=== PATIENT | male | born 1995 | race Caucasian/White ===

== ENCOUNTER 2017-01-12 21:47 | Emergency (ER) | payer BC, OTHER ==
[~2017-01-12] VITALS: Ht 172.7 cm; Wt 60.0 kg
[~2017-01-12 21:47] MED LIST: ALBU17I INH; CYCL-36 PO; IBUP-238 PO; META30CA PO
[2017-01-12 21:48] VITALS: BP 140/92; PULSE 68; RESP 16; TEMP 98; O2SAT 99
[2017-01-13] MEDS ORDERED: MORPHINE SULFATE 4 MG/ML INJ IV PUSH ONE (01:00)
--- NOTE | 2017-01-13 01:17 | PD ---
HPI Chief Complaint: Respiratory Symptoms Time Seen by Provider: 00:48 Travel History International Travel<30 days: No Contact w/Intl Traveler<30days: No Traveled to known affect area: No History of Present Illness HPI 21yo M with recently diagnosed mononucleosis presents to the ED with c/o left upper abdominal pain for 2 days that occasionally radiates up to left scapula. Has not had any fever today. Pt also with sob at time. Pain is worst with movement. Denies any chest pain, vomiting, urinary complaints. PFSH Past Medical History ADHD: Yes Asthma: Yes Cancer: Yes Diabetes: No Glaucoma: No Hepatitis: No Hiatal Hernia: No Hypertension: No Respiratory: No Immunizations Current: Yes Thyroid Disease: No Past Surgical History Abdominal Surgery: Yes (LICHA INGUINAL HERNIA REPAIR AGE 2) Pacemaker: No Other Surgery: Yes (CYST ON bilat WRIST) Social History Alcohol Use: No Tobacco Use: No Substance Use: No Allergies-Medications (Allergen,Severity, Reaction): Coded Allergies: Cephalosporins (Verified Allergy, Severe, Hives, 01/12/17) Penicillin (Verified Allergy, Severe, Rash, 01/12/17) Prevacid (Verified Allergy, Severe, Rash, 01/12/17) Sulfa (Verified Allergy, Severe, Hives, 01/12/17) Reported Meds & Prescriptions Reported Meds & Active Scripts Active Motrin (Ibuprofen) 800 Mg Tab 400 Mg PO TID Flexeril (Cyclobenzaprine HCl) 10 Mg Tab 10 Mg PO TID Reported Proventil Mdi (Albuterol Sulfate) 17 Gm Aero 2 Puff INH Q4 Metadate CD (Methylphenidate HCl) 30 Mg Cap 40 Mg PO DAILY Review of Systems Except as stated in HPI: all other systems reviewed are Neg Physical Exam Narrative GENERAL: 21yo M in mild distress. SKIN: Focused skin assessment warm/dry. HEAD: Atraumatic. Normocephalic. EYES: Pupils equal and round. No scleral icterus. No injection or drainage. ENT: No nasal bleeding or discharge. Mucous membranes pink and moist. NECK: Trachea midline. No JVD. CARDIOVASCULAR: Regular rate and rhythm. No murmur appreciated. RESPIRATORY: No accessory muscle use. Clear to auscultation. Breath sounds equal bilaterally. GASTROINTESTINAL: Abdomen soft, +TTP LUQ. No rebound tenderness or guarding. MUSCULOSKELETAL: +TTP medial left scapula. No obvious deformities. No clubbing. No cyanosis. No edema. NEUROLOGICAL: Awake and alert. No obvious cranial nerve deficits. Motor grossly within normal limits. Normal speech. PSYCHIATRIC: Appropriate mood and affect; insight and judgment normal. Data Data Last Documented VS Vital Signs Date Time Temp Pulse Resp B/P Pulse Ox O2 Delivery O2 Flow Rate FiO2 01/12/17 21:48 98.0 68 16 140/92 99 Orders Complete Blood Count With Diff (01/13/17 00:55) Comprehensive Metabolic Panel (01/13/17 00:55) Ribs, Uni (W/Exp Cxr-Min 3vw) (01/13/17 ) Ct Abd/Pel W Iv Contrast(Rout) (01/13/17 ) Morphine Inj (Morphine Inj) (01/13/17 01:00) Iohexol 350 Inj (Omnipaque 350 Inj) (01/13/17 01:23) Labs Laboratory Tests Test 01/13/17 01:15 White Blood Count 7.3 TH/MM3 Red Blood Count 5.51 MIL/MM3 Hemoglobin 14.0 GM/DL Hematocrit 41.8 % Mean Corpuscular Volume 75.7 FL Mean Corpuscular Hemoglobin 25.4 PG Mean Corpuscular Hemoglobin 33.6 % Concent Red Cell Distribution Width 13.2 % Platelet Count 212 TH/MM3 Mean Platelet Volume 9.1 FL Neutrophils (%) (Auto) 46.9 % Lymphocytes (%) (Auto) 41.1 % Monocytes (%) (Auto) 7.8 % Eosinophils (%) (Auto) 3.9 % Basophils (%) (Auto) 0.3 % Neutrophils # (Auto) 3.4 TH/MM3 Lymphocytes # (Auto) 3.0 TH/MM3 Monocytes # (Auto) 0.6 TH/MM3 Eosinophils # (Auto) 0.3 TH/MM3 Basophils # (Auto) 0.0 TH/MM3 CBC Comment DIFF FINAL Differential Comment Sodium Level 140 MEQ/L Potassium Level 4.0 MEQ/L Chloride Level 105 MEQ/L Carbon Dioxide Level 29.0 MEQ/L Anion Gap 6 MEQ/L Blood Urea Nitrogen 15 MG/DL Creatinine 0.95 MG/DL Estimat Glomerular Filtration 99 ML/MIN Rate Random Glucose 89 MG/DL Calcium Level 9.0 MG/DL Total Bilirubin 0.3 MG/DL Aspartate Amino Transf 15 U/L (AST/SGOT) Alanine Aminotransferase 21 U/L (ALT/SGPT) Alkaline Phosphatase 66 U/L Total Protein 7.3 GM/DL Albumin 3.8 GM/DL MDM Medical Decision Making Medical Screen Exam Complete: Yes Emergency Medical Condition: Yes Differential Diagnosis splenic rupture vs. rib fracture vs. viral syndrome Narrative Course 21yo M with left upper abdominal pain and recent diagnosis of mononucleosis. Labs reviewed, no leukocytosis. H/H normal. CMP unremarkable. CTa/p negative. Normal size and attenuation of spleen. Xray left ribs negative. CXR negative. Pt given morphine 4mg IV with improvement of pain. Return precautions given. Diagnosis Primary Impression: Abdominal pain Qualified Code: R10.12 - Left upper quadrant pain Patient Instructions: General Instructions Departure Forms: Tests/Procedures Additional Instructions: Please follow up with your PMD in 3-7 days. Return to the ED if symptoms worsen. Med/Other Pt SpecificInfo: Prescription(s) given Scripts Acetaminophen (Acetaminophen Extra Strength)500 Mg Shf119 Mg PO Q6H PRN (PAIN SCALE 1 TO 4) #20 TAB Ref 0 Prov:Delmi Tsai DO 01/13/17 Disposition: 01 DISCHARGE HOME Condition: Stable Delmi Tsai DO Jan 13, 2017 01:17
[2017-01-13] MEDS ORDERED: IOHEXOL 350 MG/ML 10 ML VIAL (for RAD DIAG) IV ONE (01:23)
--- NOTE | 2017-01-13 01:40 | RADRPT ---
EXAM DATE/TIME: 01/13/2017 01:06 [facility] COMPARISON: No previous studies available for comparison. INDICATIONS : Left upper rib pain. No known injury. MEDICAL HISTORY : None. SURGICAL HISTORY : None. ENCOUNTER: Initial ACUITY: 2 days PAIN SCORE: 6/10 LOCATION: Left upper chest FINDINGS: Multiple views of the left ribs were performed. There is no evidence of displaced fracture. No dest ructive lesions or areas of periosteal thickening are seen. Expiratory view of the chest is negative for pneumothorax. The mediastinal structures are midline. CONCLUSION: No perceptible rib fracture. No pneumothorax or other acute cardiopulmonary disease demonstrated. Iain Aguirre MD on January 13, 2017 at 1:38 Board Certified Radiologist. This report was verified electronically.
--- NOTE | 2017-01-13 01:45 | RADRPT ---
EXAM DATE/TIME: 01/13/2017 01:20 [facility] COMPARISON: CT ABDOMEN & PELVIS W CONTRAST, September 02, 2015, 19:24. INDICATIONS : Recent mono diagnosis. Left upper quadrant pain today. IV CONTRAST: 95 cc Omnipaque 350 (iohexol) IV ORAL CONTRAST: No oral contrast ingested. RADIATION DOSE: 4.73 CTDIvol (mGy) MEDICAL HISTORY : Hernia, inguinal. SURGICAL HISTORY : Hernia repair. ENCOUNTER: Initial ACUITY: 1 day PAIN SCALE: 5/10 LOCATION: Left upper quadrant TECHNIQUE: Volumetric scanning of the abdomen and pelvis was performed. Using automated exposure control and ad justment of the mA and/or kV according to patient size, radiation dose was kept as low as reasonably achievable to obtain optimal diagnostic quality images. FINDINGS: LOWER LUNGS: The visualized lower lungs are clear. LIVER: Homogeneous density without lesion. There is no dilation of the biliary tree. No calcified gallston es. SPLEEN: Normal size and attenuation/enhancement. The spleen measures 5.4 x 10.0 x 9.6 cm, essentially identic al to the comparison. PANCREAS: Within normal limits. KIDNEYS: Normal in size and shape. There is no mass, stone or hydronephrosis. ADRENAL GLANDS: Within normal limits. VASCULAR: There is no aortic aneurysm. BOWEL/MESENTERY: The stomach, small bowel, and colon demonstrate no acute abnormality. There is no free intraperitone al air or fluid. ABDOMINAL WALL: Within normal limits. RETROPERITONEUM: There is no lymphadenopathy. BLADDER: No wall thickening or mass. REPRODUCTIVE: Within normal limits. INGUINAL: There is no lymphadenopathy or hernia. MUSCULOSKELETAL: Visualized osseous structures are intact. CONCLUSION: Normal CT of the abdomen and pelvis. Iain Aguirre MD on January 13, 2017 at 1:41 Board Certified Radiologist. This report was verified electronically.
[2017-01-13 01:51] LABS: AUTOMATED NEUTROPHIL # 3.4 TH/MM3 (1.8-7.7); BASOPHIL % 0.3 % (0.0-2.0); EOSINOPHIL # 0.3 TH/MM3 (0-0.4); EOSINOPHIL % 3.9 % (0.0-4.0); HEMATOCRIT 41.8 % (39.0-51.0); HEMO FLAGS DIFF FINAL; LYMPH % 41.1 % (9.0-44.0); MEAN CELL VOLUME 75.7 FL (80.0-100.0); MEAN CORPUSCULAR HEMOGLOBIN 25.4 PG (27.0-34.0); MEAN CORPUSCULAR HGB CONC 33.6 % (32.0-36.0); MONO % 7.8 % (0.0-8.0); NEUT % 46.9 % (16.0-70.0); PLATELET COUNT 212 TH/MM3 (150-450); RED BLOOD COUNT 5.51 MIL/MM3 (4.50-5.90); RED CELL DISTRIBUTION WIDTH 13.2 % (11.6-17.2); WHITE BLOOD COUNT 7.3 TH/MM3 (4.0-11.0)
[2017-01-13 02:12] LABS: ALT (GPT) 21 U/L (12-78); ANION GAP 6 MEQ/L (5-15); AST (GOT) 15 U/L (15-37); BLOOD UREA NITROGEN 15 MG/DL (7-18); CHLORIDE 105 MEQ/L (98-107); GLOMERULAR FILTRATION RATE 99 ML/MIN (>89); SODIUM (NA) 140 MEQ/L (136-145)
[2017-01-13 02:15] LABS: ALKALINE PHOSPHATASE 66 U/L (45-117); TOTAL BILIRUBIN ADULT 0.3 MG/DL (0.2-1.0)
[2017-01-13] MEDS ORDERED: ACET500T36 PO (03:00)
[2017-01-13 03:04] VITALS: BP 106/63; PULSE 59; RESP 16; TEMP 97.5; O2SAT 97
== END 2017-01-13 03:23 | disposition home or self-care (01) ==
LOC: NEPE 21:47
DX: R10.12 Left upper quadrant pain (principal); J45.909 Unspecified asthma, uncomplicated
CPT/HCPCS: 71101; 74177; 80053; 85025; 96374; 99284; J2270; Q9967

== ENCOUNTER 2017-01-15 06:34 | Emergency (ER) | payer BC ==
[~2017-01-15] VITALS: Ht 172.7 cm; Wt 65.0 kg
[~2017-01-15 06:34] MED LIST changes: +ACET500T36 PO
[2017-01-15 06:36] VITALS: BP 128/78; PULSE 75; RESP 16; TEMP 97.6; O2SAT 98
[2017-01-15] MEDS ORDERED: META40CA PO (07:04)
[2017-01-15] MEDS ORDERED: NAPR500 PO (07:39)
--- NOTE | 2017-01-15 07:39 | PD ---
HPI Chief Complaint: Abdominal Pain Time Seen by Provider: 07:16 Travel History International Travel<30 days: No Contact w/Intl Traveler<30days: No Traveled to known affect area: No History of Present Illness HPI This 21-year-old man who presents to the emergency department complaining of ongoing left flank pain. He's had URI symptoms with fever and chills for the past 2 weeks or so. He's been in the emergency department and urgent care several times. He had a positive mono test. He was seen in the emergency department January 12 with abdominal pain. It is CT scan that was normal, as well as laboratory studies that were normal. He had rib x-rays are normal. He was told he may have an enlarged spleen. On his CT scan however his spleen was the same size as on previous imaging several months ago. He states he was having worsening left flank pain and so he came back to the emergency department today. History Past Medical History Narrative Medical Asthma Tetanus Vaccination: < 5 Years Influenza Vaccination: No Social History Alcohol Use: No Tobacco Use: No Allergies-Medications (Allergen,Severity, Reaction): Coded Allergies: Cephalosporins (Verified Allergy, Severe, Hives, 01/15/17) Penicillin (Verified Allergy, Severe, Rash, 01/15/17) Prevacid (Verified Allergy, Severe, Rash, 01/15/17) Sulfa (Verified Allergy, Severe, Hives, 01/15/17) Reported Meds & Prescriptions Reported Meds & Active Scripts Active Reported Metadate CD 24 HR (Methylphenidate HCl) 40 Mg Capcr 40 Mg PO DAILY Review of Systems Except as stated in HPI: all other systems reviewed are Neg Physical Exam Narrative GENERAL: A 21-year-old man, no acute distress. SKIN: Focused skin assessment warm/dry. HEAD: Atraumatic. Normocephalic. CARDIOVASCULAR: Regular rate and rhythm. No murmur appreciated. RESPIRATORY: No accessory muscle use. Clear to auscultation. Breath sounds equal bilaterally. GASTROINTESTINAL: Abdomen is flat and soft. Minimal left-sided tenderness. Spleen is not palpable. MUSCULOSKELETAL: No obvious deformities. No edema. NEUROLOGICAL: Awake and alert. No obvious cranial nerve deficits. Motor grossly within normal limits. Normal speech. PSYCHIATRIC: Appropriate mood and affect; insight and judgment normal. Data Data Last Documented VS Vital Signs Date Time Temp Pulse Resp B/P Pulse Ox O2 Delivery O2 Flow Rate FiO2 5/2/17 06:47 16 01/15/17 06:36 97.6 75 128/78 98 MDM Medical Decision Making Medical Screen Exam Complete: Yes Emergency Medical Condition: Yes Differential Diagnosis Flank pain, mono, strain or sprain, PE, other Narrative Course Medical decision making This is a 21-year-old man who presents to the emergency Department left-sided abdominal pain. He looks well. He was diagnosed with mono recently. He had recent workup including labs and CT that were negative. Possibly he has some subclinical splenomegaly causing the pain. Psych clear. There is no evidence of DVT. No recent travel, leg swelling, shortness of breath. In any case, I don't think there is any further diagnostic evaluation and needs to be done in the emergency Department. I recommend he continue with NSAIDs. We'll give him a note for work which he is concerned about. Outpatient follow-up. Diagnosis Primary Impression: Abdominal pain Additional Instructions: Follow-up with her primary doctor in 2-4 days for further evaluation. Take Naprosyn as needed for pain. Return to the emergency department for any new or worsening symptoms. Med/Other Pt SpecificInfo: Prescription(s) given Scripts Naproxen (Naprosyn)500 Mg Yyr960 Mg PO BID PRN (PAIN SCALE 1 TO 10) #20 TAB Prov:Rinku Caldwell MD 01/15/17 Disposition: 01 DISCHARGE HOME Condition: Stable Rinku Caldwell MD January 15, 2017 07:39
[2017-01-15] MEDS ORDERED: KETOROLAC TROMETHAMINE 30 MG/ML (IVP) VIAL IV PUSH ONE (07:45)
== END 2017-01-15 08:26 | disposition home or self-care (01) ==
LOC: NEPE 06:34
DX: R10.9 Unspecified abdominal pain (principal); R50.9 Fever, unspecified; Z87.09 Personal history of other diseases of the respiratory system
CPT/HCPCS: 96374; 99283; J1885

== ENCOUNTER 2017-05-12 13:26 | Emergency (ER) | payer BC, OTHER ==
[~2017-05-12] VITALS: Ht 170.2 cm; Wt 70.0 kg
[~2017-05-12 13:26] MED LIST changes: -ACET500T36 PO; -ALBU17I INH; -CYCL-36 PO; -IBUP-238 PO; -META30CA PO; +META40CA PO; +NAPR500 PO
[2017-05-12 13:28] VITALS: BP 119/63; PULSE 99; RESP 20; TEMP 98.3; O2SAT 97
--- NOTE | 2017-05-12 14:00 | PD ---
HPI Chief Complaint: Cold / Flu Symptoms Time Seen by Provider: 13:59 Travel History International Travel<30 days: No Contact w/Intl Traveler<30days: No Traveled to known affect area: No History of Present Illness HPI 21-year-old male presents to the emergency Department with complaint of fevers, body aches, sore throat, nasal congestion, ear pain 1 week. Fever started 2-3 days ago. MAXIMUM TEMPERATURE of 101.6 last night. Denies limp and throat, difficulty swallowing, unusual drooling. Reports painful swallowing. Reports occasional cough. Has history of asthma. Denies chest pain, chest tightness, shortness of breath, wheezing. Has an inhaler and has not needed to use it. Does not need a refill on inhaler. Denies abdominal pain, nausea, vomiting. Denies change in stool or urine. Has been taking urcu-ddd-eyfpxwx medications for symptom management. Symptoms are moderate in severity. Has no other medical complaints. Multiple allergies verified on chart. No other modifying factors or associated signs and symptoms. PFSH Past Medical History ADHD: Yes Asthma: Yes Cancer: Yes Diabetes: No Diminished Hearing: No Glaucoma: No Hepatitis: No Hiatal Hernia: No Hypertension: No Respiratory: Yes (ASTHMA) Immunizations Current: Yes Thyroid Disease: No Past Surgical History Abdominal Surgery: Yes (LICHA INGUINAL HERNIA REPAIR AGE 2) Pacemaker: No Other Surgery: Yes (CYST ON bilat WRIST) Social History Alcohol Use: No Tobacco Use: No Substance Use: No Allergies-Medications (Allergen,Severity, Reaction): Coded Allergies: Sulfa (Sulfonamide Antibiotics) (Unverified Allergy, Severe, Hives, ) cefepime (Unverified Allergy, Severe, Hives, 05/12/17) ceftaroline fosamil (Unverified Allergy, Severe, Hives, 05/12/17) lansoprazole (Unverified Allergy, Severe, Rash, 05/12/17) penicillin G (Unverified Allergy, Severe, Rash, 05/12/17) Reported Meds & Prescriptions Reported Meds & Active Scripts Active Magic Mouthwash Pediatric/Adult Liq (Lidocaine/Diphenhydr/Alum/Mg/Simeth) 60 Ml Susp 5 Ml SWISH-SWAL Q3HR PRN Each 5mL contains: Diphenydramine 4.5mg, Viscous Lidocaine 2% 10mg, Maalox Advanced Regular Strength 2.7ml Ibuprofen 800 Mg Tab 800 Mg PO Q6HR PRN Azithromycin 500 Mg Tab 500 Mg PO DAILY Naprosyn (Naproxen) 500 Mg Tab 500 Mg PO BID PRN Reported Metadate CD 24 HR (Methylphenidate HCl) 40 Mg Capcr 40 Mg PO DAILY Review of Systems Except as stated in HPI: all other systems reviewed are Neg Physical Exam Narrative GENERAL: Well-nourished, well-developed male patient, in no acute distress; afebrile, nontoxic-appearing SKIN: Warm and dry. No rash. HEAD: Atraumatic. Normocephalic. EYES: Pupils equal and round at 3 mm with brisk reaction. No scleral icterus. No injection or drainage. PERRLA. ENT: Mucosa pink and dry. Pharynx with 1+ tonsils; with erythema; without exudate, and edema. No Uvular edema. No uvular, palatal, or tonsillar deviation. Airway patent. Voice is hoarse. EARS: Bilateral pinnae and external canals appear within normal limits. Left tympanic membrane with erythema, dullness, and loss of landmarks; no perforation. Right tympanic membranes without erythema, dullness or perforation.. NECK: Trachea midline. Anterior cervical lymphadenopathy and tenderness. CARDIOVASCULAR: Regular rate and rhythm. No murmur appreciated. RESPIRATORY: No accessory muscle use. Clear to auscultation. Breath sounds equal bilaterally. GASTROINTESTINAL: Abdomen soft, non-tender, nondistended. Hepatic and splenic margins not palpable. Bowel sounds are active 4 quadrants. MUSCULOSKELETAL: No obvious deformities. No clubbing. No cyanosis. No edema. NEUROLOGICAL: Awake and alert. Oriented 3. No obvious cranial nerve deficits. Motor grossly within normal limits. Normal speech. Moves all extremities. PSYCHIATRIC: Appropriate mood and affect; insight and judgment normal. Data Data Last Documented VS Vital Signs Date Time Temp Pulse Resp B/P (MAP) Pulse Ox O2 Delivery O2 Flow Rate FiO2 05/12/17 13:28 98.3 99 20 119/63 (81) 97 Room Air Orders Orders Influenzae A/B Antigen (05/12/17 14:00) Group A Rapid Strep Screen (05/12/17 14:00) MDM Medical Decision Making Medical Screen Exam Complete: Yes Emergency Medical Condition: Yes Medical Record Reviewed: Yes Differential Diagnosis Strep pharyngitis, influenza, URI, otitis media Narrative Course 21-year-old male physical exam consistent with left otitis media and cold/flu symptoms. MAXIMUM TEMPERATURE of 101.6 last night. Patient is afebrile in the ER. He is nontoxic-appearing. Denies lump in throat, difficulty swallowing, unusual drooling. I will treat the patient with azithromycin for otitis media. Influenza ordered. Rapid strep ordered and pending. 1505: Influenza negative. Azithromycin, Magic mouthwash, ibuprofen prescribed for home. Rapid strep negative. Instructed patient to follow up with primary care provider. Patient verbalizes understanding and agreement with treatment plan. Patient is medically cleared and stable for discharge. Discussed reasons to return to the emergency department. Patient agrees with treatment plan. The patients vital signs are stable and the patient is stable for outpatient follow-up and treatment. Patient discharged home, stable and in no acute distress. Diagnosis Primary Impression: Left otitis media Qualified Codes: H66.92 - Otitis media, unspecified, left ear Referrals: [facility] Primary Care Physician Patient Instructions: General Instructions, Serous Otitis Media (ED) Additional Instructions: Antibiotics as prescribed and take until they are gone Ibuprofen or Tylenol as directed and as needed to reduce fever; may alternate ibuprofen and Tylenol as needed every 3 hours to minimize fever Egvl-hjb-tycnelm cold/flu medications as directed and as needed for symptom management Get plenty of sleep/rest Drink plenty of fluids to prevent dehydration; such as Gatorade, Powerade, Pedialyte Crisp diet to encourage nutrition such as crackers, fruit, applesauce, toast, soup etc. Use an air humidifier/turn off ceiling fans Follow-up with your primary care provider within 1 day Return immediately to the emergency department with worsening of symptoms Med/Other Pt SpecificInfo: Prescription(s) given Scripts Lvzhakdevbbjbxk-Jneylnldo-Mjo-Alum-Simeth Liq (Magic Mouthwash Pediatric/Adult Liq) 60 Ml Susp 5 ML SWISH-SWAL Q3HR Y for SORE THROAT, #60 ML 0 Refills Each 5mL contains: Diphenydramine 4.5mg, Viscous Lidocaine 2% 10mg, Maalox Advanced Regular Strength 2.7ml Prov: Constanza Guo 05/12/17 Ibuprofen (Ibuprofen) 800 Mg Tab 800 MG PO Q6HR Y for PAIN, #30 TAB 0 Refills Prov: Constanza Guo 05/12/17 Azithromycin (Azithromycin) 500 Mg Tab 500 MG PO DAILY for Infection, #5 TAB 0 Refills Prov: Constanza Guo 05/12/17 Disposition: 01 DISCHARGE HOME Condition: Stable Constanza Guo May 12, 2017 14:00
[2017-05-12] MEDS ORDERED: AZIT500T2 PO (14:14)
[2017-05-12] MEDS ORDERED: MAGICPED SWISH-SWAL (14:15)
[2017-05-12] MEDS ORDERED: IBUP800T23 PO (14:15)
== END 2017-05-12 15:38 | disposition home or self-care (01) ==
LOC: NEPK 13:26
DX: H66.92 Otitis media, unspecified, left ear (principal); J02.9 Acute pharyngitis, unspecified; R09.81 Nasal congestion; R50.9 Fever, unspecified; J45.909 Unspecified asthma, uncomplicated; F90.9 Attention-deficit hyperactivity disorder, unspecified type
CPT/HCPCS: 87081; 87804; 87880; 99284

== ENCOUNTER 2017-08-12 20:24 | Emergency (ER) | payer OTHER ==
[~2017-08-12 20:24] MED LIST changes: +AZIT500T2 PO; +IBUP1TAB7 PO; +MAGICPED SWISH-SWAL
[2017-08-12 20:25] VITALS: BP 132/78; PULSE 77; RESP 16; TEMP 98; O2SAT 99
--- NOTE | 2017-08-12 22:06 | PD ---
HPI Chief Complaint: Injury Time Seen by Provider: 21:47 Travel History International Travel<30 days: No Contact w/Intl Traveler<30days: No Traveled to known affect area: No History of Present Illness HPI 22-year-old male here for evaluation of right anterior shoulder pain after running, sliding, and striking his shoulder against the wall. Patient fell to the ground when this occurred. He did not hit his head or lose consciousness. Pain is severe, constant, worse with movements. He states that his right arm feels "a little weird." He is right-hand dominant. PFSH Past Medical History ADHD: Yes Asthma: Yes Cancer: Yes (thyroid) Cardiovascular Problems: No Diabetes: No Diminished Hearing: No Glaucoma: No Hepatitis: No Hiatal Hernia: No Hypertension: No Respiratory: Yes (ASTHMA) Immunizations Current: Yes Thyroid Disease: No Past Surgical History Abdominal Surgery: Yes (LICHA INGUINAL HERNIA REPAIR AGE 2) Pacemaker: No Other Surgery: Yes (CYST ON bilat WRIST, moved coins from throat as a child) Social History Alcohol Use: No Tobacco Use: No Substance Use: No Allergies-Medications (Allergen,Severity, Reaction): Coded Allergies: Sulfa (Sulfonamide Antibiotics) (Unverified Allergy, Severe, Hives, ) cefepime (Unverified Allergy, Severe, Hives, 08/12/17) ceftaroline fosamil (Unverified Allergy, Severe, Hives, 08/12/17) lansoprazole (Unverified Allergy, Severe, Rash, 08/12/17) penicillin G (Unverified Allergy, Severe, Rash, 08/12/17) Reported Meds & Prescriptions Reported Meds & Active Scripts Active Ibuprofen 800 Mg Tab 800 Mg PO Q6HR PRN Naprosyn (Naproxen) 500 Mg Tab 500 Mg PO BID PRN Review of Systems Except as stated in HPI: all other systems reviewed are Neg Physical Exam Narrative GENERAL: Well-developed, well-nourished, comfortable, no apparent distress. SKIN: Focused skin assessment warm/dry. No lacerations, abrasions, or ecchymosis. HEAD: Atraumatic. Normocephalic. EYES: Pupils equal and round. No scleral icterus. No injection or drainage. NECK: Trachea midline. No JVD. No midline cervical spine step-off or tenderness. CARDIOVASCULAR: Regular rate and rhythm. Distal radial pulses brisk and equal bilaterally RESPIRATORY: No accessory muscle use. Clear to auscultation. Breath sounds equal bilaterally. GASTROINTESTINAL: Abdomen soft, non-tender, nondistended. Hepatic and splenic margins not palpable. MUSCULOSKELETAL: No obvious deformities. No clubbing. No cyanosis. No edema. Moderate tenderness along the anterior shoulder. There is normal range of active and passive motion in the right shoulder. No tenderness or step-off along the right clavicle. The rest of his joints and extremities are without deformity, without tenderness, with normal range of motion. NEUROLOGICAL: Awake and alert. No obvious cranial nerve deficits. Motor grossly within normal limits. Normal speech. Normal sensation in the right upper extremity. PSYCHIATRIC: Appropriate mood and affect; insight and judgment normal. Data Data Last Documented VS Vital Signs Date Time Temp Pulse Resp B/P (MAP) Pulse Ox O2 Delivery O2 Flow Rate FiO2 08/12/17 21:35 Room Air 08/12/17 20:25 98.0 77 16 132/78 (96) 99 Orders Orders Shoulder, Complete (>2vws) (08/12/17 ) Ketorolac Inj (Toradol Inj) (08/12/17 22:15) [facility] Medical Decision Making Medical Screen Exam Complete: Yes Emergency Medical Condition: Yes Differential Diagnosis Right shoulder contusion versus fracture versus dislocation Narrative Course Right shoulder x-ray shows no acute osseous injury. Diagnosis Primary Impression: Contusion of right shoulder Qualified Codes: S40.011A - Contusion of right shoulder, initial encounter Referrals: Primary Care Physician 3 days Additional Instructions: Follow-up with a primary care physician this week. Take Tylenol and ibuprofen for pain. Return to the emergency department for worsening symptoms or any other concerns. Disposition: 01 DISCHARGE HOME Condition: Stable Ebenezer Gordon MD Aug 12, 2017 22:06
--- NOTE | 2017-08-12 22:07 | RADRPT ---
EXAM DATE/TIME: 08/12/2017 20:46 [facility] COMPARISON: SHOULDER RIGHT COMPLETE (>2VWS), September 02, 2015, 17:49. INDICATIONS : Hit against door today. MEDICAL HISTORY : None. SURGICAL HISTORY : None. ENCOUNTER: Initial ACUITY: 1 day PAIN SCORE: 9/10 LOCATION: Right Top of shoulder FINDINGS: Multiple view examination of the right shoulder demonstrates no evidence of fracture or dislocation. The glenohumeral and acromioclavicular joints are maintained. There is normal range of motion betwe en internal and external rotation. Bony mineralization is normal. CONCLUSION: No acute osseous injury.. Ej Cloud MD on August 12, 2017 at 22:05 Board Certified Radiologist. This report was verified electronically.
[2017-08-12] MEDS ORDERED: KETOROLAC TROMETHAMINE 60 MG/2 ML (IM) VIAL IM ONE (22:15)
== END 2017-08-12 22:40 | disposition home or self-care (01) ==
LOC: NEPD 20:24
DX: S40.011A Contusion of right shoulder, initial encounter (principal); F90.9 Attention-deficit hyperactivity disorder, unspecified type; J45.909 Unspecified asthma, uncomplicated; W22.01XA Walked into wall, initial encounter; W18.00XA Striking against unspecified object with subsequent fall, initial encounter; Z88.0 Allergy status to penicillin; Z88.8 Allergy status to other drugs, medicaments and biological substances
CPT/HCPCS: 73030; 96372; 99284; J1885

== ENCOUNTER 2017-09-18 01:39 | Emergency (ER) | payer SELFPAY ==
[~2017-09-18] VITALS: Ht 172.7 cm; Wt 70.0 kg
[~2017-09-18 01:39] MED LIST changes: -AZIT500T2 PO; -MAGICPED SWISH-SWAL; -META40CA PO
[2017-09-18 01:42] VITALS: BP 136/84; PULSE 99; RESP 20; TEMP 97.9; O2SAT 98
[2017-09-18 01:58] VITALS: BP 129/75; PULSE 85; RESP 16; O2SAT 100
[2017-09-18] MEDS ORDERED: PROCHLORPERAZINE INJ 10 MG/2 ML VIAL IV PUSH ONE (02:00)
[2017-09-18] MEDS ORDERED: MORPHINE SULFATE 4 MG/ML INJ IV PUSH ONE (02:00)
[2017-09-18 02:22] VITALS: RESP 16; O2SAT 100
[2017-09-18] MEDS ORDERED: MORPHINE SULFATE 2 MG/ML INJ IV ONE (02:30)
--- NOTE | 2017-09-18 02:30 | PD ---
HPI Chief Complaint: Chest Pain Time Seen by Provider: 01:55 Travel History International Travel<30 days: No Contact w/Intl Traveler<30days: No Traveled to known affect area: No History of Present Illness HPI This is a 22-year-old male with a history of asthma, presents here with complaints of substernal chest pain. The patient reports sharp stabbing substernal chest pain. He reports that he was at home and received bad news about a passing of a loved one when he started experiencing severe substernal chest pain. He reports that sharp and unrelenting. He also reports epigastric discomfort. There is no reported nausea vomiting diarrhea. There is no reported shortness of breath. The patient has no cardiac history. He does have a history of thyroid cancer that's been in remission. He also has a history of asthma. There is no nausea or diaphoresis. There is no radiation of the pain. PFSH Past Medical History ADHD: Yes Asthma: Yes Cancer: Yes (thyroid) Cardiovascular Problems: No Diabetes: No Diminished Hearing: No Glaucoma: No Hepatitis: No Hiatal Hernia: No Hypertension: No Respiratory: Yes (ASTHMA) Immunizations Current: Yes Thyroid Disease: No Past Surgical History Abdominal Surgery: Yes (LICHA INGUINAL HERNIA REPAIR AGE 2) Pacemaker: No Other Surgery: Yes (CYST ON bilat WRIST, moved coins from throat as a child) Social History Alcohol Use: Yes (OCCASIONALLY) Tobacco Use: No Substance Use: No Allergies-Medications (Allergen,Severity, Reaction): Coded Allergies: Sulfa (Sulfonamide Antibiotics) (Unverified Allergy, Severe, Hives, 09/18/17 ) cefepime (Unverified Allergy, Severe, Hives, 09/18/17) ceftaroline fosamil (Unverified Allergy, Severe, Hives, 09/18/17) lansoprazole (Unverified Allergy, Severe, Rash, 09/18/17) penicillin G (Unverified Allergy, Severe, Rash, 09/18/17) Reported Meds & Prescriptions Reported Meds & Active Scripts Active Review of Systems Except as stated in HPI: all other systems reviewed are Neg General / Constitutional: No: Fever, Chills HENT: No: Headaches, Lightheadedness Cardiovascular: Positive: Chest Pain or Discomfort, No: Palpitations, Irregular Rhythm Respiratory: No: Cough, Shortness of Breath Gastrointestinal: Positive: Diarrhea, Abdominal Pain (epigastric), No: Nausea, Vomiting Genitourinary: No: Frequency, Dysuria Musculoskeletal: No: Weakness, Pain Neurologic: No: Weakness, Dizziness, Headache, Change in Mentation Psychiatric: No: Substance Abuse Physical Exam Narrative GENERAL: Developed well-nourished male in no acute respiratory distress. SKIN: Focused skin assessment warm/dry. HEAD: Atraumatic. Normocephalic. EYES: Pupils equal and round. No scleral icterus. No injection or drainage. ENT: No nasal bleeding or discharge. Mucous membranes pink and moist. NECK: Trachea midline. Supple CARDIOVASCULAR: Sinus rhythm with a rate of 95. No ectopy. No murmur appreciated. Patient has reproducible pain on his anterior chest wall. RESPIRATORY: No accessory muscle use. Clear to auscultation. Breath sounds equal bilaterally. GASTROINTESTINAL: Abdomen soft, non-tender, nondistended. MUSCULOSKELETAL: No obvious deformities. No clubbing. No cyanosis. No edema. NEUROLOGICAL: Awake and alert. No obvious cranial nerve deficits. Motor grossly within normal limits. Normal speech. NEUROLOGICAL: Awake and alert. Cranial nerves II through XII intact. Motor and sensory grossly within normal limits. Data Data Last Documented VS Vital Signs Date Time Temp Pulse Resp B/P (MAP) Pulse Ox O2 Delivery O2 Flow Rate FiO2 09/18/17 02:22 16 100 Room Air 09/18/17 01:58 85 09/18/17 01:42 97.9 Orders Orders Complete Blood Count With Diff (09/18/17 01:58) Comprehensive Metabolic Panel (09/18/17 01:58) Ckmb (Isoenzyme) Profile (09/18/17 01:58) Troponin I (09/18/17 01:58) Thyroid Stimulating Hormone (09/18/17 01:58) Chest, Single Ap (09/18/17 01:58) Iv Access Insert/Monitor (09/18/17 01:58) Ecg Monitoring (09/18/17 01:58) Oximetry (09/18/17 01:58) Drug Screen, Random Urine (09/18/17 01:58) Prochlorperazine Inj (Compazine Inj) (09/18/17 02:00) Morphine Inj (Morphine Inj) (09/18/17 02:30) Potassium Chloride Eff (K-Lyte Cl Eff) (09/18/17 09:00) Labs Laboratory Tests Test 09/18/17 02:10 09/18/17 02:20 White Blood Count 9.8 TH/MM3 Red Blood Count 6.32 MIL/MM3 Hemoglobin 16.3 GM/DL Hematocrit 48.7 % Mean Corpuscular Volume 77.1 FL Mean Corpuscular Hemoglobin 25.8 PG Mean Corpuscular Hemoglobin Concent 33.5 % Red Cell Distribution Width 13.5 % Platelet Count 271 TH/MM3 Mean Platelet Volume 8.5 FL Neutrophils (%) (Auto) 61.1 % Lymphocytes (%) (Auto) 31.6 % Monocytes (%) (Auto) 6.0 % Eosinophils (%) (Auto) 1.0 % Basophils (%) (Auto) 0.3 % Neutrophils # (Auto) 6.0 TH/MM3 Lymphocytes # (Auto) 3.1 TH/MM3 Monocytes # (Auto) 0.6 TH/MM3 Eosinophils # (Auto) 0.1 TH/MM3 Basophils # (Auto) 0.0 TH/MM3 CBC Comment DIFF FINAL Differential Comment Blood Urea Nitrogen 14 MG/DL Creatinine 1.20 MG/DL Random Glucose 80 MG/DL Total Protein 8.2 GM/DL Albumin 4.6 GM/DL Calcium Level 9.3 MG/DL Alkaline Phosphatase 74 U/L Aspartate Amino Transf (AST/SGOT) 16 U/L Alanine Aminotransferase (ALT/SGPT) 26 U/L Total Bilirubin 0.7 MG/DL Sodium Level 139 MEQ/L Potassium Level 3.0 MEQ/L Chloride Level 104 MEQ/L Carbon Dioxide Level 24.8 MEQ/L Anion Gap 10 MEQ/L Estimat Glomerular Filtration Rate 75 ML/MIN Total Creatine Kinase 69 U/L Troponin I LESS THAN 0.02 NG/ML Thyroid Stimulating Hormone 3rd Gen 2.360 uIU/ML Urine Opiates Screen NEG Urine Barbiturates Screen NEG Urine Amphetamines Screen NEG Urine Benzodiazepines Screen NEG Urine Cocaine Screen NEG Urine Cannabinoids Screen NEG MDM Medical Decision Making Medical Screen Exam Complete: Yes Emergency Medical Condition: Yes Differential Diagnosis Atypical chest pain versus ACS versus peptic ulcer disease Narrative Course 22-year-old male with history of thyroid cancer, who is in remission, asthma, who presents here with substernal chest pain. The patient had just received bad news about a lump 100 past. He started experiencing substernal chest pressure. The patient has reproducible discomfort on exam. EKG and cardiac enzymes show no evidence of acute process. He was noted to have a potassium of 3.0. He's been given 25 mg of potassium. He'll be discharged and told to increase his potassium rich diet. I informed her that he should eat a banana a day for the next 4-5 days. I recommended he increase his green leaf vegetables and citrus. Diagnosis Primary Impression: Atypical chest pain Additional Impressions: mild hypokalemia acute life stressor History of asthma Patient Instructions: General Instructions Departure Forms: Tests/Procedures Additional Instructions: Increase your potassium rich foods. Potassium comes and bananas, green leafy vegetables, citrus. Return as needed. Follow up with her primary care physician. Disposition: 01 DISCHARGE HOME Condition: Stable Petros Gonzalez MD Sep 18, 2017 02:30
[2017-09-18 02:32] LABS: BASOPHIL % 0.3 % (0.0-2.0); EOSINOPHIL # 0.1 TH/MM3 (0-0.4); HEMATOCRIT 48.7 % (39.0-51.0); HEMOGLOBIN 16.3 GM/DL (13.0-17.0); LYMPH % 31.6 % (9.0-44.0); LYMPHOCYTE # 3.1 TH/MM3 (1.0-4.8); MEAN CELL VOLUME 77.1 FL (80.0-100.0); MEAN CORPUSCULAR HEMOGLOBIN 25.8 PG (27.0-34.0); MEAN CORPUSCULAR HGB CONC 33.5 % (32.0-36.0); MEAN PLATELET VOLUME 8.5 FL (7.0-11.0); MONOCYTE # 0.6 TH/MM3 (0-0.9); NEUT % 61.1 % (16.0-70.0); PLATELET COUNT 271 TH/MM3 (150-450); RED BLOOD COUNT 6.32 MIL/MM3 (4.50-5.90); RED CELL DISTRIBUTION WIDTH 13.5 % (11.6-17.2); WHITE BLOOD COUNT 9.8 TH/MM3 (4.0-11.0)
--- NOTE | 2017-09-18 02:41 | RADRPT ---
EXAM DATE/TIME: 09/18/2017 02:19 [facility] COMPARISON: CHEST SINGLE AP, September 02, 2015, 17:48. INDICATIONS : Pain in chest, bilaterally. MEDICAL HISTORY : None. SURGICAL HISTORY : None. ENCOUNTER: Initial ACUITY: 1 day PAIN SCORE: 7/10 LOCATION: Bilateral chest FINDINGS: A single view of the chest demonstrates the lungs to be symmetrically aerated without evidence of mas s, infiltrate or effusion. The cardiomediastinal contours are unremarkable. Osseous structures are intact. CONCLUSION: Normal examination. Dorian Finley Jr., MD on September 18, 2017 at 2:39 Board Certified Radiologist. This report was verified electronically.
[2017-09-18 02:48] LABS: ALBUMIN 4.6 GM/DL (3.4-5.0); ALT (GPT) 26 U/L (12-78); AST (GOT) 16 U/L (15-37); BICARBONATE 24.8 MEQ/L (21.0-32.0); BLOOD UREA NITROGEN 14 MG/DL (7-18); CALCIUM 9.3 MG/DL (8.5-10.1); CHLORIDE 104 MEQ/L (98-107); GLOMERULAR FILTRATION RATE 75 ML/MIN (>89); GLUCOSE,RANDOM 80 MG/DL (74-106); SODIUM (NA) 139 MEQ/L (136-145)
[2017-09-18 02:58] LABS: ALKALINE PHOSPHATASE 74 U/L (45-117); TOTAL BILIRUBIN ADULT 0.7 MG/DL (0.2-1.0); TOTAL PROTEIN 8.2 GM/DL (6.4-8.2); TROPONIN I LESS THAN 0.02 NG/ML (0.02-0.05)
[2017-09-18] MEDS ORDERED: POTASSIUM CHLORIDE 25 MEQ EFFERVESCENT TAB PO SCH ×2 (04:15→09:00)
--- NOTE | 2017-09-19 08:40 | EKG ---
Date Performed: 09/18/2017 Time Performed: 01:56:05 PTAGE: 22 years EKG: Sinus rhythm POSSIBLE RIGHT VENTRICULAR CONDUCTION DELAY NONSPECIFIC ST & T-WAVE ABNORMALITY BORDERLINE ECG NO PREVIOUS TRACING DOCTOR: Rinku Ashford Interpretating Date/Time 09/19/2017 08:38:59
== END 2017-09-18 04:21 | disposition home or self-care (01) ==
LOC: NEPE 01:39
DX: R07.89 Other chest pain (principal); E87.6 Hypokalemia; J45.909 Unspecified asthma, uncomplicated; F90.9 Attention-deficit hyperactivity disorder, unspecified type; Z85.850 Personal history of malignant neoplasm of thyroid
CPT/HCPCS: 71045; 80053; 80307; 82550; 84443; 84484; 85025; 93005; 96374; 96375; 99285; J0780; J2270

== ENCOUNTER 2018-02-05 22:53 | Emergency (ER) | payer SELFPAY ==
[~2018-02-05] VITALS: Ht 175.3 cm; Wt 70.0 kg
[2018-02-05 22:58] VITALS: BP 125/69; PULSE 76; RESP 16; TEMP 97.9; O2SAT 99
[2018-02-05 23:58] VITALS: BP 127/58; PULSE 72; RESP 18; TEMP 98; O2SAT 98
[2018-02-06] MEDS ORDERED: ALBUAER3 INH (00:03)
[2018-02-06] MEDS ORDERED: ACETAMINOPHEN 325 MG TAB PO ONE (00:15)
--- NOTE | 2018-02-06 00:15 | PD ---
HPI Chief Complaint: Cold / Flu Symptoms Time Seen by Provider: 00:01 Travel History International Travel<30 days: No Contact w/Intl Traveler<30days: No Traveled to known affect area: No History of Present Illness HPI 22yo M with PMH of mononucleosis last year and asthma here with c/o intermittent fever, cough, generalized fatigue for 3 days. Also has some left rib pain. Also had some throat pain but only in the morning. Denies current chest pain, sob, n/v, abdominal pain, focal weakness or numbness. PFSH Past Medical History ADHD: Yes Asthma: Yes Cancer: Yes (thyroid) Cardiovascular Problems: No Diabetes: No Diminished Hearing: No Glaucoma: No Hepatitis: No Hiatal Hernia: No Hypertension: No Respiratory: Yes (ASTHMA) Immunizations Current: Yes Thyroid Disease: No Tetanus Vaccination: < 5 Years Influenza Vaccination: No Past Surgical History Abdominal Surgery: Yes (LICHA INGUINAL HERNIA REPAIR AGE 2) Pacemaker: No Other Surgery: Yes (CYST ON bilat WRIST, moved coins from throat as a child) Social History Alcohol Use: Yes (OCCASIONALLY) Tobacco Use: No Substance Use: No Allergies-Medications (Allergen,Severity, Reaction): Coded Allergies: Sulfa (Sulfonamide Antibiotics) (Unverified Allergy, Severe, Hives, 09/18/17 ) cefepime (Unverified Allergy, Severe, Hives, 09/18/17) ceftaroline fosamil (Unverified Allergy, Severe, Hives, 09/18/17) lansoprazole (Unverified Allergy, Severe, Rash, 09/18/17) penicillin G (Unverified Allergy, Severe, Rash, 09/18/17) prednisone (Verified Allergy, Unknown, 02/05/18) Reported Meds & Prescriptions Reported Meds & Active Scripts Active Reported Proair Hfa 8.5 GM Inh (Albuterol Sulfate) 90 Mcg/Act Aer 2 Puff INH Q4-6H PRN 108 mcg/actuation Review of Systems Except as stated in HPI: all other systems reviewed are Neg Physical Exam Narrative GENERAL: 22yo M not in distress. SKIN: Focused skin assessment warm/dry. HEAD: Atraumatic. Normocephalic. EYES: Pupils equal and round. No scleral icterus. No injection or drainage. ENT: Throat: Uvula midline, mildly erythematous. No exudate. No anterior cervical lymphadenopathy. NECK: Trachea midline. No JVD. CARDIOVASCULAR: Regular rate and rhythm. No murmur appreciated. RESPIRATORY: No accessory muscle use. Clear to auscultation. Breath sounds equal bilaterally. GASTROINTESTINAL: Abdomen soft, non-tender, nondistended. MUSCULOSKELETAL: No obvious deformities. No clubbing. No cyanosis. No edema. NEUROLOGICAL: Awake and alert. No obvious cranial nerve deficits. Motor grossly within normal limits in all extremities. Sensation intact. Normal speech. PSYCHIATRIC: Appropriate mood and affect; insight and judgment normal. Data Data Last Documented VS Vital Signs Date Time Temp Pulse Resp B/P (MAP) Pulse Ox O2 Delivery O2 Flow Rate FiO2 02/05/18 23:58 98.0 72 18 127/58 (81) 98 Room Air Orders Orders Ribs, Uni (W/Exp Cxr-Min 3vw) (02/06/18 ) Influenzae A/B Antigen (02/06/18 00:11) Group A Rapid Strep Screen (02/06/18 00:11) Acetaminophen (Tylenol) (02/06/18 00:15) Strep Culture (Group A) (02/06/18 00:15) Guaifen-Cod 200-20 Mg/10ml Liq (Robituss (02/06/18 01:15) MDM Medical Decision Making Medical Screen Exam Complete: Yes Emergency Medical Condition: Yes Differential Diagnosis URI vs. influenza vs. pneumonia Narrative Course 22yo well appearing male with flu like symptoms. Influenza negative. Group A strep negative. Xray left rib with CXR showed no fracture, pneumothorax. No consolidation. Pt given robitussin with codeine, and acetaminophen and feels better. Return precautions given. Diagnosis Primary Impression: Viral syndrome Patient Instructions: General Instructions Departure Forms: Tests/Procedures, Work Release Enter return to work date: February 06, 2018 Additional Instructions: Please follow up with your primary care physician in 2-3 days. Return to the ED if symptoms worsen. Med/Other Pt SpecificInfo: Prescription(s) given Scripts Dextromethorphan (Robitussin Lingering Cold) 15 Mg Cap 30 MG PO Q6H Y for COUGH for 5 Days, #40 CAP 0 Refills Prov: Delmi Tsai DO 02/06/18 Acetaminophen (Tylenol) 325 Mg Tab 650 MG PO Q6H Y for PAIN SCALE 1 TO 4, #20 TAB 0 Refills Prov: Delmi Tsai DO 02/06/18 Disposition: 01 DISCHARGE HOME Condition: Stable Delmi Tsai DO February 06, 2018 00:15
[2018-02-06] MEDS ORDERED: guaiFENesin/CODEINE SYRUP 200 MG/20 MG/10 ML CUP PO ONE (01:15)
--- NOTE | 2018-02-06 01:38 | RADRPT ---
EXAM DATE: 02/06/2018 1:07 AM EDT AGE/SEX: 22 years / Male INDICATIONS: Left flank pain from a recent fall. CLINICAL DATA: This is the patient's initial encounter. Patient reports that signs and symptoms have been present for 3 days and indicates a pain score of 6/10. MEDICAL/SURGICAL HISTORY: None. None. COMPARISON: [facility] [place] LEFT(W PA CXR MIN 3VWS), 01/13/2017. . FINDINGS: There is no evidence of displaced fracture. No destructive lesions or areas of periosteal thickening are seen. Expiratory view of the chest is negative for pneumothorax. The mediastinal structures ar e midline. CONCLUSION: Negative rib series with no evidence of fracture or pneumothorax. Electronically signed by: Nghia Ibanez MD 02/06/2018 1:36 AM EDT
[2018-02-06] MEDS ORDERED: TYLE325T PO (01:43)
[2018-02-06] MEDS ORDERED: ROBICAP2 PO (01:43)
== END 2018-02-06 01:58 | disposition home or self-care (01) ==
LOC: NEPC 22:53
DX: B34.9 Viral infection, unspecified (principal); J45.909 Unspecified asthma, uncomplicated
CPT/HCPCS: 71101; 87081; 87804; 87880; 99283

== ENCOUNTER 2018-03-02 20:35 | Emergency (ER) | payer SELFPAY ==
[~2018-03-02 20:35] MED LIST changes: +ALBUAER3 INH; -IBUP1TAB7 PO; -NAPR500 PO; +ROBICAP2 PO; +TYLE325T PO
[2018-03-02 20:45] VITALS: BP 150/66; PULSE 96; RESP 18; TEMP 99; O2SAT 98
[2018-03-02] MEDS ORDERED: SODIUM CHLORIDE 0.9% FLUSH 10 ML FLUSH IVF PRN (21:15)
[2018-03-02 21:28] LABS: AUTOMATED NEUTROPHIL # 10.5 TH/MM3 (1.8-7.7); BASOPHIL % 0.3 % (0.0-2.0); EOSINOPHIL # 0.4 TH/MM3 (0-0.4); EOSINOPHIL % 2.5 % (0.0-4.0); HEMATOCRIT 44.5 % (39.0-51.0); HEMOGLOBIN 14.6 GM/DL (13.0-17.0); LYMPH % 16.7 % (9.0-44.0); LYMPHOCYTE # 2.3 TH/MM3 (1.0-4.8); MEAN CELL VOLUME 76.4 FL (80.0-100.0); MEAN CORPUSCULAR HEMOGLOBIN 25.1 PG (27.0-34.0); MEAN CORPUSCULAR HGB CONC 32.9 % (32.0-36.0); MONO % 5.7 % (0.0-8.0); MONOCYTE # 0.8 TH/MM3 (0-0.9); NEUT % 74.8 % (16.0-70.0); PLATELET COUNT 259 TH/MM3 (150-450); RED BLOOD COUNT 5.82 MIL/MM3 (4.50-5.90); RED CELL DISTRIBUTION WIDTH 13.3 % (11.6-17.2)
--- NOTE | 2018-03-02 21:38 | RADRPT ---
EXAM DATE: 03/02/2018 9:36 PM EDT AGE/SEX: 22 years / Male INDICATIONS: coughing and wheezing with shortness of breath, vomiting, and diarrhea. CLINICAL DATA: This is the patient's initial encounter. Patient reports that signs and symptoms have been present for 2 days and indicates a pain score of 3/10. MEDICAL/SURGICAL HISTORY: Asthma. None. COMPARISON: No prior exams available for comparison. FINDINGS: PA and lateral views of the chest demonstrate the lungs to be symmetrically aerated without evidence of mass, infiltrate or effusion. The cardiomediastinal contours are unremarkable. Osseous structures are intact. CONCLUSION: No active disease. Electronically signed by: Don Chaney MD 03/02/2018 9:37 PM EDT
[2018-03-02] MEDS ORDERED: SODIUM CHLOR 0.9% 1000 ML INJ 1,000 ML IV ONE (21:45)
[2018-03-02 21:49] LABS: ALBUMIN 3.9 GM/DL (3.4-5.0); AST (GOT) 20 U/L (15-37); BICARBONATE 27.1 MEQ/L (21.0-32.0); BLOOD UREA NITROGEN 9 MG/DL (7-18); CALCIUM 8.9 MG/DL (8.5-10.1); CHLORIDE 108 MEQ/L (98-107); CREATININE 1.08 MG/DL (0.60-1.30); GLOMERULAR FILTRATION RATE 85 ML/MIN (>89); GLUCOSE,RANDOM 77 MG/DL (74-106); SODIUM (NA) 143 MEQ/L (136-145)
[2018-03-02 21:50] LABS: ALT (GPT) 27 U/L (12-78)
[2018-03-02 21:53] LABS: ALKALINE PHOSPHATASE 95 U/L (45-117); TOTAL BILIRUBIN ADULT 0.4 MG/DL (0.2-1.0); TOTAL PROTEIN 7.7 GM/DL (6.4-8.2)
[2018-03-02] MEDS: RESP: ALBUTEROL 2.5 MG/IPRATROPIUM 0.5 MG NEB (SCH) INH (21:54)
--- NOTE | 2018-03-02 22:27 | PD ---
HPI Chief Complaint: GI Complaint Time Seen by Provider: 21:06 Travel History International Travel<30 days: No Contact w/Intl Traveler<30days: No Traveled to known affect area: No History of Present Illness HPI Patient is a 22-year-old male presenting to the emergency department for evaluation of cough, wheezing, nausea, diarrhea. Patient symptoms started 4 days ago. Patient has been taking TheraFlu and Robitussin. He reports a fever of 102 yesterday but none today. Patient reports a history of asthma, he states he vomits when he coughs too much but he also vomits independent of that. Patient has been able to hold down some food and fluids. He has had 2 episodes of what he calls diarrhea today. He denies abdominal pain, chest pain , headache. Symptom onset was gradual, symptoms are moderate in nature. There are no alleviating factors. PFSH Past Medical History ADHD: Yes Asthma: Yes Cancer: Yes (thyroid) Glaucoma: No Hepatitis: No Hiatal Hernia: No Hypertension: No Respiratory: Yes (ASTHMA) Immunizations Current: Yes Thyroid Disease: No Past Surgical History Abdominal Surgery: Yes (LICHA INGUINAL HERNIA REPAIR AGE 2) Pacemaker: No Other Surgery: Yes (CYST ON bilat WRIST, moved coins from throat as a child) Social History Alcohol Use: Yes (OCCASIONALLY) Tobacco Use: No Substance Use: No Allergies-Medications (Allergen,Severity, Reaction): Coded Allergies: Sulfa (Sulfonamide Antibiotics) (Unverified Allergy, Severe, Hives, ) cefepime (Unverified Allergy, Severe, Hives, 03/02/18) ceftaroline fosamil (Unverified Allergy, Severe, Hives, 03/02/18) lansoprazole (Unverified Allergy, Severe, Rash, 03/02/18) penicillin G (Unverified Allergy, Severe, Rash, 03/02/18) prednisone (Verified Allergy, Unknown, 03/02/18) Reported Meds & Prescriptions Reported Meds & Active Scripts Active Robitussin Lingering Cold (Dextromethorphan HBr) 15 Mg Cap 30 Mg PO Q6H PRN 5 Days Tylenol (Acetaminophen) 325 Mg Tab 650 Mg PO Q6H PRN Reported Proair Hfa 8.5 GM Inh (Albuterol Sulfate) 90 Mcg/Act Aer 2 Puff INH Q4-6H PRN 108 mcg/actuation Review of Systems Except as stated in HPI: all other systems reviewed are Neg General / Constitutional: Positive: Fever, Chills HENT: No: Headaches, Sore Throat, Neck Pain Cardiovascular: No: Chest Pain or Discomfort Respiratory: Positive: Cough, Wheezing Gastrointestinal: Positive: Nausea, Vomiting, Diarrhea, No: Abdominal Pain Genitourinary: No: Dysuria Musculoskeletal: No: Myalgias Neurologic: No: Dizziness Physical Exam Narrative GENERAL: Well-developed, well-nourished, alert male. Presenting in no acute distress. SKIN: Warm and dry. HEAD: Atraumatic. Normocephalic. EYES: Pupils equal and round. No scleral icterus. No injection or drainage. ENT: No nasal bleeding or discharge. Mucous membranes pink and moist. NECK: Trachea midline. No JVD. CARDIOVASCULAR: Regular rate and rhythm. RESPIRATORY: No accessory muscle use. Expiratory wheezes scattered throughout lung morin. GASTROINTESTINAL: Abdomen soft, non-tender, nondistended. Hepatic and splenic margins not palpable. No rebound, no guarding, positive bowel sounds. MUSCULOSKELETAL: Extremities without clubbing, cyanosis, or edema. No obvious deformities. NEUROLOGICAL: Awake and alert. No obvious cranial nerve deficits. Motor grossly within normal limits. Five out of 5 muscle strength in the arms and legs. Normal speech. PSYCHIATRIC: Appropriate mood and affect; insight and judgment normal. Data Data Last Documented VS Vital Signs Date Time Temp Pulse Resp B/P (MAP) Pulse Ox O2 Delivery O2 Flow Rate FiO2 03/02/18 20:45 99.0 96 18 150/66 (94) 98 Room Air Orders Orders Complete Blood Count With Diff (03/02/18 21:13) Comprehensive Metabolic Panel (03/02/18 21:13) Influenzae A/B Antigen (03/02/18 21:13) Chest, Pa & Lat (03/02/18 21:13) Iv Access Insert/Monitor (03/02/18 21:13) Oximetry (03/02/18 21:13) Sodium Chloride 0.9% Flush (Ns Flush) (03/02/18 21:15) Albuterol-Ipratropium Neb (Duoneb Neb) (03/02/18 21:15) Sodium Chlor 0.9% 1000 Ml Inj (Ns 1000 M (03/02/18 21:45) Labs Laboratory Tests Test 03/02/18 21:20 White Blood Count 14.0 TH/MM3 Red Blood Count 5.82 MIL/MM3 Hemoglobin 14.6 GM/DL Hematocrit 44.5 % Mean Corpuscular Volume 76.4 FL Mean Corpuscular Hemoglobin 25.1 PG Mean Corpuscular Hemoglobin Concent 32.9 % Red Cell Distribution Width 13.3 % Platelet Count 259 TH/MM3 Mean Platelet Volume 9.0 FL Neutrophils (%) (Auto) 74.8 % Lymphocytes (%) (Auto) 16.7 % Monocytes (%) (Auto) 5.7 % Eosinophils (%) (Auto) 2.5 % Basophils (%) (Auto) 0.3 % Neutrophils # (Auto) 10.5 TH/MM3 Lymphocytes # (Auto) 2.3 TH/MM3 Monocytes # (Auto) 0.8 TH/MM3 Eosinophils # (Auto) 0.4 TH/MM3 Basophils # (Auto) 0.0 TH/MM3 CBC Comment AUTO DIFF Differential Comment AUTO DIFF CONFIRMED Blood Urea Nitrogen 9 MG/DL Creatinine 1.08 MG/DL Random Glucose 77 MG/DL Total Protein 7.7 GM/DL Albumin 3.9 GM/DL Calcium Level 8.9 MG/DL Alkaline Phosphatase 95 U/L Aspartate Amino Transf (AST/SGOT) 20 U/L Alanine Aminotransferase (ALT/SGPT) 27 U/L Total Bilirubin 0.4 MG/DL Sodium Level 143 MEQ/L Potassium Level 3.8 MEQ/L Chloride Level 108 MEQ/L Carbon Dioxide Level 27.1 MEQ/L Anion Gap 8 MEQ/L Estimat Glomerular Filtration Rate 85 ML/MIN [facility] Medical Decision Making Medical Screen Exam Complete: Yes Emergency Medical Condition: Yes Interpretation(s) Last Impressions Chest X-Ray 03/02/182112 Signed Impressions: CONCLUSION: No active disease. Laboratory Tests Test 03/02/18 21:20 White Blood Count 14.0 TH/MM3 Red Blood Count 5.82 MIL/MM3 Hemoglobin 14.6 GM/DL Hematocrit 44.5 % Mean Corpuscular Volume 76.4 FL Mean Corpuscular Hemoglobin 25.1 PG Mean Corpuscular Hemoglobin Concent 32.9 % Red Cell Distribution Width 13.3 % Platelet Count 259 TH/MM3 Mean Platelet Volume 9.0 FL Neutrophils (%) (Auto) 74.8 % Lymphocytes (%) (Auto) 16.7 % Monocytes (%) (Auto) 5.7 % Eosinophils (%) (Auto) 2.5 % Basophils (%) (Auto) 0.3 % Neutrophils # (Auto) 10.5 TH/MM3 Lymphocytes # (Auto) 2.3 TH/MM3 Monocytes # (Auto) 0.8 TH/MM3 Eosinophils # (Auto) 0.4 TH/MM3 Basophils # (Auto) 0.0 TH/MM3 CBC Comment AUTO DIFF Differential Comment AUTO DIFF CONFIRMED Blood Urea Nitrogen 9 MG/DL Creatinine 1.08 MG/DL Random Glucose 77 MG/DL Total Protein 7.7 GM/DL Albumin 3.9 GM/DL Calcium Level 8.9 MG/DL Alkaline Phosphatase 95 U/L Aspartate Amino Transf (AST/SGOT) 20 U/L Alanine Aminotransferase (ALT/SGPT) 27 U/L Total Bilirubin 0.4 MG/DL Sodium Level 143 MEQ/L Potassium Level 3.8 MEQ/L Chloride Level 108 MEQ/L Carbon Dioxide Level 27.1 MEQ/L Anion Gap 8 MEQ/L Estimat Glomerular Filtration Rate 85 ML/MIN Vital Signs Date Time Temp Pulse Resp B/P (MAP) Pulse Ox O2 Delivery O2 Flow Rate FiO2 03/02/18 20:45 99.0 96 18 150/66 (94) 98 Room Air Differential Diagnosis Bronchitis versus pneumonia versus viral syndrome versus asthma exacerbation versus metabolic abdomen only versus other Narrative Course Patient is a 22-year-old male presented to emerge department for evaluation of flulike symptoms. Patient is well-appearing, he does have a history of asthma and has story wheezes on exam. Labs and imaging ordered and pending. Labs reviewed, CBC with a white count of 14, chemistry is unremarkable, chest x-ray with no acute disease. Influenza is negative. Patient reports feeling better. Patient will be discharged home, he is encouraged to continue symptom management. He was encouraged to follow-up with his a clinical return to emergency department any new or worsening symptoms. Patient will be given a prescription for antibiotic however he was encouraged to avoid using it unless his symptoms exacerbate after resolving or if his symptoms persist beyond 7 days. Patient verbalized understanding these instructions. Patient stable for discharge. Diagnosis Primary Impression: Viral syndrome Referrals: [facility] Patient Instructions: General Instructions, Viral Syndrome (ED) Additional Instructions: Follow-up at the [facility], you do not need to have insurance to go there. They take 12 walk-in appointments daily if you call at 8 AM If you begin antibiotic, complete the full course Continue symptom management Maintain adequate fluid intake Return to emergency department for any new or worsening symptoms Med/Other Pt SpecificInfo: Prescription(s) given Scripts Azithromycin (Azithromycin) 250 Mg Tab 250 MG PO DIRECTED for Infection, #6 TAB 0 Refills Take 2 tabs (500 mg) on day 1 then 1 tab daily x 4 days. Prov: Gisell Angel 03/02/18 Disposition: 01 DISCHARGE HOME Condition: Stable Gisell Angel Mar 02, 2018 22:27
[2018-03-02] MEDS ORDERED: AZIT250T3 PO (22:48)
== END 2018-03-02 23:32 | disposition home or self-care (01) ==
LOC: NEPE 20:35
DX: B34.9 Viral infection, unspecified (principal); R19.7 Diarrhea, unspecified; R05 Cough; J45.909 Unspecified asthma, uncomplicated; F90.9 Attention-deficit hyperactivity disorder, unspecified type
CPT/HCPCS: 71046; 80053; 85025; 87804; 94640; 94664; 96360; 99284; J7030